=== PATIENT | male | born 1960 | race Caucasian/White ===

== ENCOUNTER 2019-06-21 11:05 | Inpatient (IN) ==
[2019-06-21] MEDS ORDERED: ZOSYN 4.5 GM in NS 100 ML IV ONE (11:29)
[2019-06-21] MEDS ORDERED: TORADOL IV ONE (11:29)
[2019-06-21] MEDS ORDERED: NS 1,000 ML IV ONE (11:29)
[2019-06-21] MEDS ORDERED: BENTYL IM ONE (11:29)
[2019-06-21] MEDS ORDERED: ZOFRAN IV ONE ×2 (11:29→16:03)
[2019-06-21 11:56] LABS: URINE SOURCE CLEAN CATCH
[2019-06-21 12:14] LABS: BASO# 0.02 X1000 (0.0-0.2); BASO% 0.1 % (0.0-0.8); EOS# 0.16 X1000 (0.0-0.7); EOS% 1.1 % (0.0-10.0); HEMATOCRIT 47.2 % (42.0-52.0); HEMOGLOBIN 15.5 g/dL (14.0-18.0); LYMPH% 21.5 % (20.5-51.1); MCH 30.8 PG (27-31); MCHC 32.8 g/dL (33-37); MCV 93.7 FL (81-99); MONO# 0.91 X1000 (0.11-0.59); MONO% 6.3 % (1.7-9.3); MPV 9.5 FL (7.4-10.4); NEUT# 10.21 X1000 (1.4-6.5); PLT 282 X1000 (130-400); RBC 5.04 XMIL (4.7-6.1); RDW 13.3 % (11.5-14.5)
[2019-06-21 12:30] LABS: COLOR YELLOW; UR EPITHELIAL CELLS <10 /HPF (<10); URINE BACTERIA 1+ /HPF; URINE WBC <10 /HPF (<10)
[2019-06-21 12:31] LABS: BILIRUBIN URINE NEGATIVE (NEGATIVE); BLOOD URINE TRACE (NEGATIVE); GLUCOSE URINE NEGATIVE (NEGATIVE); KETONE URINE NEGATIVE (NEGATIVE); LEUKOCYTES URINE NEGATIVE (NEGATIVE); NITRITE URINE NEGATIVE (NEGATIVE); PROTEIN URINE NEGATIVE (NEGATIVE); SP GRAVITY URINE 1.015; TURBIDITY URINE CLEAR (CLEAR); UROBILINOGEN URINE NORMAL (NORMAL)
[2019-06-21 12:54] LABS: AGAP 16; ALB/GLOB RATIO 1.9; ALBUMIN 4.3 g/dL (3.5-5.0); ALKALINE PHOSPHATASE 67 U/L (32-122); AMYLASE 42 U/L (20-200); BUN 10 mg/dL (8-22); CALCIUM 8.7 mg/dL (8.8-10.2); CHLORIDE 100 mmol/L (98-107); COSMO 280; CREATININE 1.1 mg/dL (0.7-1.2); ESTIMATED GFR > 60; GLUCOSE 135 mg/dL (70-104); GOT 16 U/L (10-34); GPT 17 U/L (10-44); LIPASE 25 U/L (13-60); POTASSIUM 4.2 mmol/L (3.5-5.1); SODIUM 140 mmol/L (136-145); TCO2 24 mmol/L (25-35); TOTAL BILIRUBIN 0.36 mg/dL (0.20-1.00); TOTAL PROTEIN 6.6 g/dL (6.3-8.3)
--- NOTE | 2019-06-21 14:07 | Diag Imaging Result Doc PS360 ---
EXAM: CT ABD/PELVIS W/IV CONT ONLY HISTORY: colitis TECHNIQUE: CT abdomen and pelvis with intravenous contrast COMPARISON: 05/31/2018 FINDINGS: There is a right lower lobe calcified granuloma. The gallbladder is contracted. No calcified stones. There is fatty infiltration of the liver. No focal hepatic abnormality. Normal spleen, pancreas, adrenal glands, and kidneys. No hydronephrosis. No aortic aneurysm. Mild atherosclerosis. There has been a proximal colon resection. No bowel obstruction. The distal colonic diverticula. There are inflammatory changes about the sigmoid colon with colonic wall thickening. No adjacent abscess or free air. The urinary bladder is only mildly distended. The prostate is not enlarged. Small fat filled left inguinal hernia. IMPRESSION: Recurrent sigmoid diverticulitis This exam was performed using automated exposure control, adjustment of mA or kV according to patient size, and/or use of iterative reconstruction technique. Electronically signed by Ismael Castellon 06/21/2019 2:05 PM
--- NOTE | 2019-06-21 15:37 | PROVIDER DOCUMENTATION ---
This chart was entered by Ashleigh Cuevas Scribe, acting as scribe for Hernán Boykin MD. HPI-Abdominal Pain/GI Problem - General Chief Complaint: Abdominal Pain Stated Complaint: ABD PAIN Time Seen by Provider: 06/21/19 11:24 Source: patient Allergies/Adverse Reactions: Patient Allergies Allergy/AdvReac Type Severity Reaction Status Date / Time morphine AdvReac ITCHING Verified 03/29/19 10:24 Home Medications: Home Medication List Medication Instructions Recorded Confirmed Last Taken Type NK [No Home Medications] 06/21/19 06/21/19 Unknown History - History of Present Illness-ABD Nature of Presenting Problems: Patient is a 59 year old male who presents with LLQ abdominal pain. States pain has been present for 1 week and getting worse. History of diverticulitis. Does not report nausea and vomiting. Abdominal Pain Onset Location: reports: LLQ Quality of Pain: reports: aching Severity in ED: reports: mild Onset/Duration: reports: 1 week ago Timing: reports: still present, getting worse Activities at Onset: reports: light activity Modifying Factors: worse with: defecating Associated Symptoms: reports: denies symptoms Bruising or Bleeding Gums?: No Similar Symptoms Previously?: Yes Recently seen or treated by another doctor?: No Review of Systems - Adult - REVIEW OF SYSTEMS - ADULT Constitutional: reports: no symptoms reported Eyes: reports: no symptoms reported Ears, Nose, Mouth & Throat: reports: no symptoms reported Cardiovascular: reports: no symptoms reported Respiratory: reports: no symptoms reported Gastrointestinal: reports: abdominal pain (LLQ). denies: nausea, vomiting Genitourinary: reports: no symptoms reported Musculoskeletal: reports: no symptoms reported Integumentary: reports: no symptoms reported Neurological: reports: no symptoms reported Psychiatric: reports: no symptoms reported Endocrine: reports: no symptoms reported Hematologic/Lymphatic: reports: no symptoms reported Allergic/Immunologic: reports: no symptoms reported All Other Systems: Reviewed and Negative Past History - Adult - PAST MEDICAL HISTORY-ADULT Review of Records: reports: Old Records Reviewed, Nursing Assessment Review, Medications Reviewed, Social history reviewed & non-contributory. Major Childhood Illnesses: reports: denies history Cardiovascular: reports: denies history Respiratory: reports: denies history Gastrointestinal: reports: diverticulosis, other (diverticulitis) Obstetrical/Gynecological: reports: denies history Genitourinary: reports: denies history Musculoskeletal: reports: intervertebral disc disease Neurological: reports: denies history Endocrine/Immune: reports: denies history Other Conditions: reports: denies history - PRIOR SURGERIES/PROCEDURES Surgical/Procedure History: reports: appendectomy, tonsillectomy, bowel surgery (colon resection) - IMMUNIZATION STATUS Childhood Immunizations: See Nurse Assessment Flu Vaccine: See Nurse Assessment - FAMILY HISTORY Family History: reviewed, not pertinent - SOCIAL HISTORY Smoking: cigarettes, greater than 1 pack/day Provider spent 3-5 mins advising pt. on dangers of tobacco.: Discussed manners to quit use, and f/u contacts for add'l counseling. Substance Use: alcohol, marijuana Alcohol Use Frequency: occasionally Physical Exam-General - PHYSICAL EXAM-ADULT Initial Vital Signs Reviewed: Yes - CONSTITUTIONAL General Appearance: alert, mild distress. negative: lethargic - HEAD, EARS, NOSE, MOUTH & THROAT HENMT: normocephalic/atraumatic, moist mucous membranes. negative: angioedema - RESPIRATORY Respiratory: chest non-tender, rhonchi (bilateral). negative: respiratory distress, crackles - CARDIOVASCULAR Cardiovascular: regular rate, rhythm, no gallop, no murmur. negative: tachycardia - GASTROINTESTINAL (ABDOMEN) Abdominal Exam: normal bowel sounds, soft, guarding, tenderness (LLQ, RLQ and suprapubic. worse in LLQ). negative: rigid - MUSCULOSKELETAL Extremity: non-tender, normal inspection. negative: pedal edema - SKIN Integumentary: normal color, normal turgor, warm/dry. negative: diaphoresis, pallor - NEUROLOGIC Neurologic: grossly normal. negative: aphasia, facial droop - PSYCHIATRIC Psych/Mental Status: normal mood/affect, oriented x 3. negative: anxious Progress - PLAN OF CARE/RESULTS Progress/Plan/Lab Results: Vital Signs - 8 hr 06/21/19 11:15 Temperature 97.9 F Pulse Rate 92 H Respiratory Rate 20 Blood Pressure 144/62 O2 Sat by Pulse Oximetry 96 Result Diagrams: 06/21/19 11:33 06/21/19 11:33 - REASSESSMENT Reassessment #1 Time Reassessed: 15:28 Status: improving (States feels better, but is hurting too much to go home.) - CT/MRI 1 CT Study: Abdomen, Pelvis Impression: See EMR Report (Signed EXAM: CT ABD/PELVIS W/IV CONT ONLY HISTORY: colitis TECHNIQUE: CT abdomen and pelvis with intravenous contrast COMPARISON: 05/31/2018 FINDINGS: There is a right lower lobe calcified granuloma. The gallbladder is contracted. No calcified stones. There is fatty infiltration of the liver. No focal hepatic abnormality. Normal spleen, pancreas, adrenal glands, and kidneys. No hydronephrosis. No aortic aneurysm. Mild atherosclerosis. There has been a proximal colon resection. No bowel obstruction. The distal colonic diverticula. There are inflammatory changes about the sigmoid colon with colonic wall thickening. No adjacent abscess or free air. The urinary bladder is only mildly distended. The prostate is not enlarged. Small fat filled left inguinal hernia. IMPRESSION: Recurrent sigmoid diverticulitis This exam was performed using automated exposure control, adjustment of mA or kV according to patient size, and/or use of iterative reconstruction technique. Electronically signed by Ismael Castellon 06/21/2019 2:05 PM 06/21/19 1405 Interpreting Physician: Ismael Castellon MD Dictated Date/Time: 06/21/19 1402 cc: Hernán Boykin MD; Josefa West) - CONSULTS/PCP/HOSPITALIST Notification #1 *Consult/PCP/Hospitalist*: MAGALI Yen paged at 1530 Time Discussed: 15:34 Reason/Comments: Dr. Boykin consulted with Ambreen about patient Consult Disposition: Will see in ED, Admit Departure - Departure Date of Disposition Decision: 06/21/19 Time of Disposition Decision: 15:29 DIAGNOSIS: Diverticulitis of sigmoid colon, Tobacco use disorder Disposition: ADMITTED INPATIENT 09 Certified Medical Emergency: Emergent Condition: Stable Referrals and Follow-Ups: Josefa West CRNP [Primary Care Provider] - - Critical Care Note This patient required my direct & personal management of CC.: No Attestation - Physician/ RICARDO Attestation Patient care was provided by Advanced Practice Provider:: No The physician spent face to face time with patient:: Yes Advanced Practice Provider documentation review:: Supervising physician onsite and consulted in the evaluation and care of this patient. The physician did have a face to face encounter with the patient. This chart was documented by the azucena pattonibe, (Ashleigh Cuevas Scribe) and accurately reflects the services I performed and decisions made by me, Hernán Boykin MD, as attested by the provider's signature.
[2019-06-21] MEDS ORDERED: DILAUDID IV ONE (16:03)
[2019-06-21] MEDS ORDERED: NICODERM PATCH TD ONE (16:03)
[2019-06-21] MEDS ORDERED: LEVSIN-SL SL PRN (18:18)
--- NOTE | 2019-06-21 18:39 | HISTORY AND PHYSICAL ---
ADDENDUM REPORT: I have seen and examined Mr. Crews today in the emergency room. Mr. Crews is a 59-year-old male who presented to the emergency department today because of excruciating left lower quadrant abdominal pain that has been going on for the past week but it had just progressively gotten worse in the last 2 days. He said he had mild nauseation, but has not vomited. Upon presenting to the emergency room, he was evaluated including a CT scan of the abdomen, which reveals recurrent sigmoid diverticulitis. He has been admitted for further medical care. OBJECTIVELY: Vital Signs: Current blood pressure is 130/91, pulse of 72, respirations 18, temperature 98.4 degrees. HEENT: Positives include that he looks slightly dry. Abdomen: Soft, but quite tender on the left side with minimum guarding. I do not think there was any rebound tenderness. There is an old supraumbilical surgical scar which is noted. Extremities: No pedal edema. LABORATORY DATA: Shows a WBC of 14.40, hemoglobin is about 15.5. I think it is slightly hemoconcentrated. Urinalysis is unremarkable. ASSESSMENT: 1. Left lower abdominal pain with elevated white cell count. A CT scan shows recurrent diverticulitis. According to Mr. Crews this is about the 4th time he is having diverticulitis. We are going to get surgery to evaluate him this time around. I think he would have to be evaluated for possible surgical intervention since this keeps reoccurring. We will start him on intravenous antibiotics, control his pain and have surgery consult. 2. Tobacco use and abuse. Patient has been counseled. 3. Previous history of right hemicolectomy for nonmalignant tumor with prophylactic appendectomy. 4. Recent right finger 3-[address] Pearce noted. 5. Mild volume depletion with hemoconcentration. Please refer to the details of H and P which has been dictated by the nurse practitioner in the chart. cc: Grant Moreno MD
[2019-06-21] MEDS: ZOSYN 3.375 GM in NS 50 ML IV SCH ×2 (20:14→23:52)
[2019-06-21] MEDS: FLAGYL 500 MG/NS 500 MG/100 ML IVPB IV SCH ×2 (20:14→23:52)
[2019-06-21] MEDS: DILAUDID IV PRN ×2 (20:15→23:51)
--- NOTE | 2019-06-21 20:55 | HISTORY AND PHYSICAL ---
CHIEF COMPLAINT: Abdominal pain. HISTORY OF PRESENT ILLNESS: This is a 59-year-old male with a prior history of diverticulitis, who presents to the emergency room complaining of left lower quadrant abdominal pain that has been present for about a week. He describes this as an aching type pain. He did state this is a pain that he had in the past with diverticulitis and when it persisted, he felt he needed to come to the emergency room for evaluation. CT scan did in fact show recurrent sigmoid diverticulitis, for which he has been given Zosyn in the emergency room and will be started on Cipro and Flagyl and will be admitted for further evaluation and treatment. PAST MEDICAL HISTORY: Diverticulosis with diverticulitis. PAST SURGICAL HISTORY: Colon resection, tonsillectomy. SOCIAL HISTORY: He smokes about a pack a day. He denies any alcohol or illicit drug use. FAMILY HISTORY: Father had colon cancer. Mother had lung cancer. ALLERGIES: Morphine. HOME MEDICATIONS: None. REVIEW OF SYSTEMS: Discussed with patient, with pertinent positives stated in HPI. He denied any syncope, dizziness, any chest pain or palpitations, any vomiting, any diarrhea, constipation, black or bloody vomitus or stools, any hematuria, dysuria, frequency or urgency. PHYSICAL EXAMINATION: GENERAL: This is a 59-year-old gentleman who is lying on the stretcher in the emergency room in no distress. VITAL SIGNS: Blood pressure is 130/90 with a heart rate of 72, respirations 18, temperature is 98.4 with room air saturations 95% to 97%. EYES: Pupils equal, round, react to light. EOMs are intact. Sclerae anicteric. HEENT: Head is normocephalic, atraumatic. Mucous membranes are dry. NECK: Supple with trachea midline. CARDIOVASCULAR: Regular rate and rhythm. S1 and S2 appreciated. He has no lower extremity edema. Peripheral pulses are palpable x4 extremities. Calves are nontender bilaterally. PULMONARY: Breath sounds are clear with no increased work of breathing noted. Chest rises and falls symmetrically with respiration. Chest wall is nontender to palpation. GASTROINTESTINAL: Abdomen is soft, nontender, nondistended. Bowel sounds in all 4 quadrants. NEUROLOGIC: He is alert and oriented x3. SKIN: Warm and dry. LABS: WBC is 14 with hemoglobin 15.5, hematocrit 47.2, and platelets of 282,000 sodium 140, potassium 4.2, BUN 10, creatinine 1.1 with a glucose of 135. Urinalysis is essentially negative. Blood cultures are pending. CT of the abdomen and pelvis reveals recurrent sigmoid diverticulitis. ASSESSMENT: 1. Left lower quadrant abdominal pain. 2. Leukocytosis. 3. Recurrent sigmoid diverticulitis per CT scan. 4. Small volume depletion. 5. History of tobacco use and abuse. PLAN: The patient will be admitted to the hospital. He will be n.p.o. at present. We will consult Dr. Ramires, general surgery. We will continue with IV hydration, give him Dilaudid for pain, Zofran for nausea, antibiotics of Zosyn, Cipro and Flagyl, with Levsin sublingual 4 times a day for pain. We will start a nicotine patch. We will check a CBC and BMP in the morning. For DVT prophylaxis will use SCDs and ambulation. The patient was evaluated and examined, and the plan was discussed with Dr. Moreno. Further treatments pending hospital course. Dictated by MAGALI Wakefield for Grant Moreno MD cc: MAGALI Wakefield MD
[2019-06-21] MEDS ORDERED: CIPRO 400 MG/D5W 400 MG/200 ML IVPB IV SCH (21:00)
[2019-06-21] MEDS ORDERED: SODIUM CHLORIDE 0.9% INJ PRN (22:27)
[2019-06-21] MEDS: PHENERGAN IV PRN (22:35)
[2019-06-21] MEDS: PROTONIX IV SCH (22:35)
[2019-06-22] MEDS: ZOSYN 3.375 GM in NS 50 ML IV SCH ×5 (03:29→23:53)
[2019-06-22] MEDS: DILAUDID IV PRN ×6 (03:30→20:03)
[2019-06-22] MEDS: FLAGYL 500 MG/NS 500 MG/100 ML IVPB IV SCH (06:26)
[2019-06-22] MEDS: PHENERGAN IV PRN ×4 (06:30→23:59)
[2019-06-22 07:48] LABS: HEMATOCRIT 42.7 % (42.0-52.0); HEMOGLOBIN 13.9 g/dL (14.0-18.0); MCH 30.4 PG (27-31); MCHC 32.6 g/dL (33-37); MCV 93.4 FL (81-99); MPV 9.5 FL (7.4-10.4); RBC 4.57 XMIL (4.7-6.1); WBC 10.75 X1000 (4.8-10.8)
[2019-06-22 08:09] LABS: AGAP 11; BUN 12 mg/dL (8-22); CALCIUM 8.3 mg/dL (8.8-10.2); CHLORIDE 105 mmol/L (98-107); COSMO 276; CREATININE 1.2 mg/dL (0.7-1.2); ESTIMATED GFR > 60; GLUCOSE 80 mg/dL (70-104); POTASSIUM 4.1 mmol/L (3.5-5.1); SODIUM 139 mmol/L (136-145); TCO2 23 mmol/L (25-35)
[2019-06-22] MEDS: NICODERM PATCH TD SCH (10:01)
[2019-06-22] MEDS ORDERED: OFIRMEV 1000 MG/ISOTONIC SOLN 1,000 MG/100 ML BOTTLE IV PRN (10:02)
--- NOTE | 2019-06-22 10:03 | GENERAL SURGERY CONSULTATION ---
DATE: 06/22/2019 REQUESTING PHYSICIAN: The Hospitalist. REASON FOR CONSULTATION: Concerning diverticulitis. HISTORY OF PRESENT ILLNESS: A 59-year-old gentleman who is known to me from prior episodes of diverticulitis, who presented to the emergency department complaining of left lower quadrant pain that has been going on for about a week. He is aching in description. He has had diverticulitis in the past and I saw him when he was in the hospital last. He has had a previous colon resection. He is not sure exactly the details, but he has had what looks like at least his right colon removed. He does not seem to have any perforation or peritonitis on exam, but I was asked to weigh an opinion. PAST MEDICAL HISTORY: History of diverticulosis. PAST SURGICAL HISTORY: Includes colon resection, tonsillectomy. SOCIAL HISTORY: Current smoker. FAMILY HISTORY: Positive for colon cancer. ALLERGIES: Morphine. HOME MEDICATIONS: None. REVIEW OF SYSTEMS: Full 14 systems reviewed and are negative except for those specified in the HPI. PHYSICAL EXAMINATION: Vital Signs: Patient is currently afebrile. His vital signs are stable. General: No acute distress. Alert and oriented male, looks stated age. HEENT: Normocephalic, atraumatic. Pupils equal, round, reactive to light. Mucous membranes moist. Oropharynx benign. Neck: Supple. Trachea midline. Cardiovascular: Regular rate and rhythm. Lungs: Grossly clear. Abdomen: Soft. Some tenderness to palpation in the lower quadrants but no peritoneal signs. Extremities: Moves all extremities. Neurologic: Grossly intact. Skin: No signs of jaundice. Vascular: All extremities perfused. LABORATORY DATA: Reviewed. White blood cell count is 10, hematocrit is 42. Remainder of labs reviewed. IMAGING: CT scan independently reviewed and radiology report reviewed. ASSESSMENT AND PLAN: A 59-year-old gentleman with recurrent diverticulitis. Recurrent diverticulitis. At this time, agree with antibiotics. I would like to see how he does clinically. He has had 2 episodes at least in the past, so may need to consider surgical resection, but he has had part of his colon removed so it would be a little more challenging. We will need to follow up with how he does clinically and likely need to do an outpatient colonoscopy given the fact that he has a family history of colon cancer. I appreciate the consult. cc: Barrington Strange MD
[2019-06-22] MEDS: ZOFRAN IV PRN ×2 (13:14→20:03)
--- NOTE | 2019-06-22 14:46 | PROGRESS NOTE ---
DATE: 06/22/2019 SUBJECTIVE: This morning Mr. Crews refers to be doing well. Abdominal pain has significantly improved. However, he was complaining of some headaches. OBJECTIVE: Vital signs: Blood pressure is 127/62, pulse of 72, respirations 14 and temperature 98.1 degrees. General exam: Mr. Crews is a 59-year-old gentleman. He is in bed in no distress. HEENT: Mucosa is pink and moist. Anicteric. Acyanotic. Neck: Supple. Chest: Good air entry bilaterally. There were no crepitations, no rhonchi. Cardiovascular: Regular rate and rhythm. There are no murmurs, no rubs, no gallops. GI/Abdomen: Soft, it is nontender. There is an old supraumbilical surgical scar on the anterior abdominal wall. Extremities: No pedal edema. DIET SUPERVISOR: Patient is awake, alert, oriented. There is no focal deficit. LABORATORY DATA: WBC is down to 10.75. Rest of CBC is normal. Chemistry is also within normal range. So far, blood cultures still pending. ASSESSMENT: 1. Acute recurrent sigmoid diverticulitis. I understand this is about the fourth time Mr. Crews is having this disease process. Surgery has evaluated him. They recommend to continue conservative management. 2. Previous history of right hemicolectomy for a non malignant tumor with prophylactic appendectomy noted. 3. Tobacco use and abuse prior to hospitalization. Patient has been counseled. 4. Recent surgery to the right third and fourth fingers by Dr. Pearce noted. 5. Clinical volume depletion on admission, improved. 6. Headaches. I think this is probably all related to the opioids used. We are going to cut back on the narcotics and get him one-time dose of intravenous Tylenol. We will follow up with further recommendations from surgery. cc: Grant Moreno MD
[2019-06-22] MEDS: PROTONIX IV SCH (23:52)
[2019-06-22] MEDS: SODIUM CHLORIDE 0.9% INJ SCH (23:53)
[2019-06-23] MEDS: DILAUDID IV PRN ×6 (06:14→22:57)
[2019-06-23] MEDS: ZOFRAN IV PRN ×2 (06:14→19:35)
[2019-06-23] MEDS: ZOSYN 3.375 GM in NS 50 ML IV SCH (06:14)
--- NOTE | 2019-06-23 06:31 | GENERAL SURGERY PROGRESS NOTE ---
DATE: 06/23/2019 SUBJECTIVE: Patient seems to be feeling better, and not having as much pain. OBJECTIVE: Vital Signs: Patient is currently afebrile. His vital signs are stable. General: No acute distress. HEENT: Normocephalic, atraumatic. Pupils equal, round, and reactive to light. Mucous membranes moist. Oropharynx benign. Neck: Supple. Trachea midline. Cardiovascular: Regular rate and rhythm. Lungs: Grossly clear. Abdomen: Soft. Very minimal tenderness to palpation suprapubically in the left lower quadrant. No peritoneal signs. Extremities: Moves all extremities. Neurologic: Grossly intact. Skin: No signs of jaundice. Vascular: All extremities perfused. LABORATORY: None this morning as of yet. ASSESSMENT AND PLAN: A 59-year-old gentleman with recurrent diverticulitis. Recurrent diverticulitis. At this time, he is improving clinically. We will advance him to a regular diet. I think he can probably be transitioned here pretty soon to p.o. antibiotics, and hopefully discharge soon. He will need to follow up with me as an outpatient for repeat colonoscopy. cc: Barrington Strange MD
[2019-06-23] MEDS: NICODERM PATCH TD SCH (09:00)
--- NOTE | 2019-06-23 10:08 | PROGRESS NOTE ---
DATE: 06/23/2019 SUBJECTIVE: This morning Ms. Crews refers to be doing well. Abdominal pain is down to about 2/10. No nausea. He said he had a little bowel movement too. He was seen early on this morning, and his diet has been advanced to regular diet. OBJECTIVE: Current vitals: Blood pressure is 151/78, pulse of 90, respiration is 18, temperature is 98.0 degrees. Patient is saturating 93%. General exam: Mr. Crews is a 59-year-old gentleman. He is in bed, no distress. HEENT: Mucosa is pink and moist. Anicteric. Acyanotic. Neck: Supple. Chest: Good air entry bilaterally. There were no crepitations, no rhonchi. Cardiovascular: Regular rate and rhythm. GI/Abdomen: Soft. It is minimally tender on the left side. There is an old supraumbilical surgical scar. Extremities: No pedal edema. Bowel sounds present. 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 There is no focal deficit. LABORATORY DATA: None for today. ASSESSMENT: 1. Recurrent acute sigmoid diverticulitis. The patient seems to be clinically improving, has been evaluated by surgery. Recommendation is to continue conservative management. 2. Start patient antibiotics. He will be switched to oral and see if he is able to tolerate it. He has already been started on a regular diet. If he has tolerated everything, then we will be able to discharge him the first thing in the morning. 3. Previous history of a right hemicolectomy for a nonmalignant tumor with prophylactic appendectomy noted. 4. Tobacco use and abuse prior to hospitalization. 5. Suspected chronic obstructive pulmonary disease. Patient has been advised to follow up with Pulmonary Medicine for pulmonary function tests and adequate management. 6. Clinical volume depletion, improved. PLAN: So, in general, I think Mr. Crews is doing well. His diet has been advanced to regular diet. We are switching his IV antibiotics to p.o., observe him today. If he is able to tolerate his medications and diet, then we can discharge him in the morning. cc: Grant Moreno MD
[2019-06-23] MEDS: CIPRO PO SCH ×3 (10:53→22:55)
[2019-06-23] MEDS: FLAGYL PO SCH ×2 (12:20→16:37)
[2019-06-23] MEDS: SODIUM CHLORIDE 0.9% INJ SCH (16:37)
[2019-06-23] MEDS: PHENERGAN IV PRN ×2 (16:37→20:49)
[2019-06-24] MEDS: DILAUDID IV PRN ×2 (02:01→08:09)
[2019-06-24] MEDS: PHENERGAN IV PRN ×2 (02:02→08:08)
[2019-06-24] MEDS ORDERED: PRILOSEC PO SCH (07:00)
--- NOTE | 2019-06-24 07:08 | GENERAL SURGERY PROGRESS NOTE ---
DATE: 06/24/2019 SUBJECTIVE: The patient seems to be doing okay. He had a little bit of pain last night but seems to be doing a little bit better this morning. OBJECTIVE: Vital Signs: The patient is currently afebrile. His vital signs are stable. General Examination: No acute distress. HEENT: Normocephalic, atraumatic. Pupils equal, round, reactive to light. Mucous membranes moist. Oropharynx benign. Neck: Supple. Trachea midline. Cardiovascular: Regular rate and rhythm. Lungs: Grossly clear. Abdomen: Soft. Very minimal tenderness to palpation, similar to previous examination. Overall improved. No peritoneal signs. Extremities: Moves all extremities. Neurologic: Grossly intact. Skin: No signs of jaundice. Vascular: All extremities perfused. Laboratory: None this morning as of yet. ASSESSMENT AND PLAN: A 59-year-old gentleman with recurrent diverticulitis. Recurrent diverticulitis. At this time, he is clinically improving. We have advance him to a regular diet. I think he can probably be safely discharged home today and follow up with me to schedule an outpatient colonoscopy. cc: Barrington Strange MD
[2019-06-24 07:39] VITALS: BP 133/67
[2019-06-24] MEDS: NICODERM PATCH TD SCH (08:09)
[2019-06-24] MEDS: SODIUM CHLORIDE 0.9% INJ SCH (08:09)
[2019-06-24] MEDS: FLAGYL PO SCH (08:10)
[2019-06-24] MEDS: CIPRO PO SCH (08:10)
--- NOTE | 2019-06-24 17:06 | DISCHARGE SUMMARY ---
ADMISSION DATE: 06/21/2019 DISCHARGE DATE: 06/24/2019 DISPOSITION: Home. FOLLOW-UP: 1. Dr. Strange. 2. Dr. Tovar. 3. Ms. Josefa West. CONSULTATION DURING THIS ADMISSION: Surgery was consulted. Patient was seen by Dr. Strange. INVASIVE PROCEDURES DONE DURING THIS ADMISSION: None. IMAGING STUDIES OF SIGNIFICANCE: A CT scan of the abdomen and pelvis with IV contrast showed recurrent sigmoid diverticulitis. ADMISSION DIAGNOSES: 1. Lower abdominal pain secondary to acute recurrent sigmoid diverticulitis. 2. Tobacco use and abuse. 3. 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 4. Recent right finger surgery. DIAGNOSES AT THE TIME OF DISCHARGE: 1. Recurrent acute sigmoid diverticulitis. Patient responded with conservative management. Surgery was consulted. 2. Previous history of right hemicolectomy for nonmalignant tumor with prophylactic appendectomy. Noted, this was 1 of the reasons why Surgery recommended against any surgical intervention at this point. 3. Tobacco use and abuse prior to hospitalization. 4. Suspected chronic obstructive pulmonary disease. The patient advised to follow up with Pulmonary Medicine. 5. Clinical volume depletion, improved. DISCHARGE MEDICATIONS: 1. Bentyl 10 mg p.o. 4 times per day. 2. Ciprofloxacin 500 b.i.d. 3. Lactobacillus 1 tablet daily. 4. Metronidazole 250 three times per day. 5. Omeprazole 20 mg p.o. daily. 6. Judy-Colace 1 tablet b.i.d. PRESENTING COMPLAINT: Abdominal pain. HISTORY OF PRESENT COMPLAINT: Mr. Crews is a 59-year-old male who is known to have recurrent diverticulitis in the past, at least, he said, 3 to 4 times. Came in this time because of abdominal pain. A CT scan in the ER did show recurrent sigmoid diverticulitis. The patient was admitted because he was p.o. intolerant and uncontrolled pain. HOSPITAL STAY: Mr. Crews was admitted to the medical floor. He was started on broad-spectrum IV antibiotics was initially kept n.p.o. and was fluid resuscitated, During the hospital course, he continued to improve. His white cell count improved. The patient's nausea and vomiting also got better, so he was started on clears and was advanced to regular diet yesterday, which he tolerated well. The patient was seen by Dr. Strange, the surgeon tower air traffic control specialist, and he recommended to treat Mr. Crews more conservatively. However, if he did fail medical management, then they will think about surgery. Fortunately Mr. Crews continues to improve during the hospital course. Abdominal pain got resolved. Antibiotics were switched to p.o., and he was observed overnight. This morning he feels a lot better. Vitals are stable. Physical exam for most part unremarkable. There is no tenderness in the abdomen. We think he is back to his baseline. The diverticulitis is resolved. He is going to continue with the p.o. antibiotics for a total of 10 days, and he will follow up with Dr. Strange. He has also been advised to follow up with GI for outpatient colonoscopy. All the discharge instructions have been discussed with him, and he voiced understanding. The was at the bedside at the time of the encounter. Mr. Crews has also been educated on diverticular disease and diet. Time spent for discharge is 37 minutes. cc: MD Josefa Tran CRNP Manish Arora, MD Matthew L. Figh, MD
== END 2019-06-24 10:50 | disposition home or self-care (01) ==
LOC: ED 11:05 → 3N 20:22
PROVIDERS: ATTEND Internal Medicine